=== PATIENT | male | born 1960 | race Caucasian/White ===

== ENCOUNTER 2023-06-15 12:54 | Outpatient (REF) | payer OTHER, SELFPAY ==
--- NOTE | ~2023-06-15 | XR_ITS ---
EXAMINATION: XR HIP, RIGHT CLINICAL INFORMATION: Right hip pain COMPARISON: None available. TECHNIQUE: AP radiograph of the pelvis with a frog lateral view of the right hip. FINDINGS: Superolateral joint space narrowing and prominent marginal osteophytes along the femoral head and neck junction which may predispose to impingement. No fracture. Vascular calcifications are present. The left hip is unremarkable. XR/XR hip RT min 2V IMPRESSION: Moderate right hip osteoarthritis with prominent osteophytes. No fracture.
== END 2023-06-15 12:55 | disposition home or self-care (01) ==
LOC: HO.HOSX 12:54
PROVIDERS: Visit Provider Orthopaedic Surgery
DX: M16.11 Unilateral primary osteoarthritis, right hip (principal)
CPT/HCPCS: 73502

== ENCOUNTER 2023-06-15 12:55 | Outpatient (AMB) | payer OTHER, SELFPAY ==
--- NOTE | 2023-06-15 13:03 | MHC.OFFVIS ---
Intake Vital Signs 06/15/23 13:07 Height 5 ft 8 in Weight 184 lb BMI 28.0 Intake Visit Reasons: RN WOMEN SERVICES-Right hip pain Intake Note: Branden is a 62 year old male who presents today as a new patient with complaints progressively worsening right hip pain. The patient describes his hip pain as sharp and severe in nature. Most of the pain is located within his right thigh and groin. His pain has gotten worse over the last 5 years in spite of continued non operative treatments. He has tried Tylenol and anti-inflammatory medicines which gave him minimal relief. He has also done physical therapy exercises which aggravated his pain. Allergies No Known Allergies Allergy (Verified 06/15/23 13:08) [facility] Surgical History (Updated 06/15/23 @ 13:11 by Silvia Busch [facility]) History of heart artery stent Physical Exam Vital Signs: BMI result Body Mass Index 28.0 Const Other: Well-nourished well-developed very friendly male awake alert and oriented x3 in no acute distress Extrem Other: Bilateral lower extremity examination shows good capillary refill, no skin lesions noted, normal sensation light touch Right hip examination shows decreased range of motion when compared to his left hip, pain with range of motion, no tenderness over his bursa Results Reviewed Results Reviewed: X-rays of the patient's right hip show end-stage degenerative joint disease with grade 4 [id number] arthritis, subchondral sclerosis, no acute bony abnormalities Assessment & Plan Assessment & Plan (1) Arthritis of right hip: Code(s): M16.11 - Unilateral primary osteoarthritis, right hip Plan Mr. Cain presents with progressively worsening right hip pain due to end-stage degenerative joint disease. I had a lengthy discussion with the patient regarding the treatment options. At this point he has failed continued non operative treatments. The risks and benefits of right total hip replacement surgery were discussed at length with the patient. The patient wishes to proceed with surgery. He will be scheduled for our next available date. I will see him back 1 week prior to his surgery to answer any final questions that he might have. Feel free to call me at any time should questions regarding his orthopedic management arise. I spent 22 minutes in reviewing the patient's records and imaging studies, seeing the patient and documenting in the medical record. Orders: Orders XR hip RT min 2V Today M25.551 - Pain in right hip Coding Level of Care Code New Pt Level 2 (39074) Diagnoses Arthritis of right hip M16.11
[2023-06-15 13:07] VITALS: BMI 28.0
== END 2023-06-15 13:31 | disposition home or self-care (01) ==
PROVIDERS: PCP Internal Medicine; Visit Provider Orthopaedic Surgery
DX: M16.11 Unilateral primary osteoarthritis, right hip (principal)
CPT/HCPCS: 99202